=== PATIENT | male | born 1950 | race Caucasian/White ===

== ENCOUNTER 2021-04-22 07:15 | Inpatient (IN) | payer OTHER ==
[2021-04-16 10:18] VITALS: BMI 27.8
[2021-04-22] MEDS ORDERED: CEFAZOLIN 2 GM in DEXTROSE 5%-WATER - 50 ML IVPB ONE (07:46)
[2021-04-22] MEDS ORDERED: TRANEXAMIC ACID 1000 MG/10 ML VIAL IVPUSH ONE (07:46)
[2021-04-22] MEDS: CELECOXIB 200 MG CAPSULE PO ONE ×2 (08:05→15:02)
[2021-04-22] MEDS ORDERED: BUPIVACAINE HCL 50 ML ONE (08:32)
[2021-04-22] MEDS ORDERED: MIDAZOLAM HCL 2 MG/2 ML SINGLE DOSE VIAL ONE ×2 (08:37→10:06)
[2021-04-22] MEDS ORDERED: BUPIVACAINE LIPOSOME/PF (EXPAREL) 266 MG/20 ML VIAL ONE (08:37)
[2021-04-22] MEDS ORDERED: SODIUM CHLORIDE 0.9% P/F 10 ML VIAL IJ ONE ×2 (08:37→10:51)
[2021-04-22] MEDS ORDERED: BUPIVACAINE HCL/PF 0.5% (5MG/ML) 10 ML VIAL ONE (08:37)
[2021-04-22] MEDS ORDERED: ceFAZolin SODIUM 1 GM VIAL ONE ×2 (08:39→09:53)
[2021-04-22] MEDS ORDERED: VANCOMYCIN 1,000 MG VIAL (RESTRICTED TO ID ONLY) ONE (08:40)
[2021-04-22] MEDS ORDERED: MAGNESIUM HYDROX 2400MG/30ML ORAL SUSPENSION 30 ML CUP PO PRN (09:51)
[2021-04-22] MEDS ORDERED: LACTATED RINGERS SOLUTION 1,000 ML IV SCH (10:00)
[2021-04-22] MEDS ORDERED: PANTOPRAZOLE 20 MG TABLET PO SCH (10:00)
[2021-04-22] MEDS ORDERED: METOPROLOL TARTRATE 50 MG TABLET (FP) PO SCH (10:00)
[2021-04-22] MEDS ORDERED: PATIENT'S OWN MEDICATION (NON-FORMULARY) (Cetirizine Hcl [Cetirizine Hcl] 10 MG Tablet) PO SCH (10:00)
[2021-04-22] MEDS ORDERED: amLODIPine BESYLATE 10 MG TABLET (FP) PO SCH (10:00)
[2021-04-22] MEDS ORDERED: PATIENT'S OWN MEDICATION (NON-FORMULARY) (Oxybutynin Chloride [Oxybutynin Chloride Er] 15 PO SCH (10:00)
[2021-04-22] MEDS ORDERED: PROPOFOL 20 ML ONE (10:25)
[2021-04-22] MEDS ORDERED: THROMBIN (BOVINE) 5,000 UNIT VIAL TP ONE (10:48)
[2021-04-22] MEDS ORDERED: ACETAMINOPHEN 325 MG TABLET (FP) ONE (12:00)
[2021-04-22] MEDS ORDERED: oxyCODONE HCL 5 MG TABLET PO PRN (12:29)
[2021-04-22] MEDS: oxyCODONE HCL 5 MG TABLET PO PRN ×3 (13:33→18:57)
[2021-04-22] MEDS: ACETAMINOPHEN 325 MG TABLET (FP) PO SCH ×2 (15:03→18:14)
[2021-04-22] MEDS: SENNOSIDES/DOCUSATE COMBO (SENNA PLUS) TABLET (UD) PO SCH ×2 (15:03→21:34)
[2021-04-22] MEDS: MULTIVITAMINS (DAILY MVI) TABLET (FP) PO SCH (15:03)
[2021-04-22] MEDS: CEFAZOLIN 2 GM/D5W 2 GM/50 ML ML IVPB SCH (17:49)
[2021-04-22] MEDS: MAG HYDROX/AL HYDROX/SIMETH 30 ML UNIT-DOSE CUP PO PRN ×2 (20:06→23:17)
[2021-04-22] MEDS ORDERED: KETOROLAC TROMETHAMINE 30 MG/1 ML VIAL IVPUSH PRN (20:22)
[2021-04-22] MEDS ORDERED: ACETAMINOPHEN 1000 MG/100 ML VIAL (NON FORMULARY) IVPB PRN (20:23)
[2021-04-22] MEDS: traZODone HCL 100 MG TABLET (FP) PO SCH (21:33)
[2021-04-22] MEDS: ATORVASTATIN CA 20 MG TABLET (FP) PO SCH (21:34)
[2021-04-22] MEDS: oxyCODONE HCL 10 MG SUSTAINED ACTING TABLET PO SCH (21:35)
[2021-04-22] MEDS: MIRTAZAPINE 15 MG TABLET (FP) PO SCH (21:35)
[2021-04-22] MEDS ORDERED: traZODone HCL 150 MG TABLET PO SCH (22:00)
[2021-04-22] MEDS: ONDANSETRON 4 MG/2 ML VIAL IVPUSH PRN (23:48)
[2021-04-23] MEDS: CEFAZOLIN 2 GM/D5W 2 GM/50 ML ML IVPB SCH (01:24)
[2021-04-23] MEDS: ACETAMINOPHEN 325 MG TABLET (FP) PO SCH ×4 (01:24→23:55)
[2021-04-23] MEDS: MAG HYDROX/AL HYDROX/SIMETH 30 ML UNIT-DOSE CUP PO PRN ×2 (05:41→10:15)
[2021-04-23] MEDS: ONDANSETRON 4 MG/2 ML VIAL IVPUSH PRN ×2 (05:44→12:15)
[2021-04-23 07:48] LABS: HEMATOCRIT 35.9 % (35.4-49); HEMOGLOBIN 11.8 GM/dl (11.7-16.9); MCH 27.5 pg (25.7-33.7); MEAN CELL VOLUME 83.4 fl (80-96); MEAN PLT VOLUME 6.7 fl (7.5-11.1); PLATELET COUNT 320 10^3/uL (134-434); RDW 13.5 % (11.9-15.9); WHITE BLOOD COUNT 10.5 K/mm3 (4.0-10.8)
[2021-04-23] MEDS: ASPIRIN 325 MG TABLET PO SCH (12:09)
[2021-04-23] MEDS: LORATADINE 10 MG TABLET PO SCH (12:10)
[2021-04-23] MEDS: SOLIFENACIN SUCCINATE 5 MG TAB PO SCH (12:10)
[2021-04-23] MEDS: PANTOPRAZOLE 20 MG TABLET PO SCH (12:10)
[2021-04-23] MEDS: SENNOSIDES/DOCUSATE COMBO (SENNA PLUS) TABLET (UD) PO SCH ×2 (12:10→21:47)
[2021-04-23] MEDS: MULTIVITAMINS (DAILY MVI) TABLET (FP) PO SCH (12:11)
[2021-04-23] MEDS: oxyCODONE HCL 10 MG SUSTAINED ACTING TABLET PO SCH ×2 (12:11→21:46)
[2021-04-23] MEDS: amLODIPine BESYLATE 10 MG TABLET (FP) PO SCH (12:11)
[2021-04-23] MEDS: METOPROLOL TARTRATE 50 MG TABLET (FP) PO SCH (12:11)
[2021-04-23] MEDS: traZODone HCL 100 MG TABLET (FP) PO SCH (21:46)
[2021-04-23] MEDS: MIRTAZAPINE 15 MG TABLET (FP) PO SCH (21:46)
[2021-04-23] MEDS: ATORVASTATIN CA 20 MG TABLET (FP) PO SCH (21:47)
[2021-04-24] MEDS: oxyCODONE HCL 5 MG TABLET PO PRN ×3 (01:38→14:15)
[2021-04-24] MEDS: ACETAMINOPHEN 325 MG TABLET (FP) PO SCH ×2 (05:51→14:36)
[2021-04-24 08:01] LABS: HEMATOCRIT 32.3 % (35.4-49); HEMOGLOBIN 10.8 GM/dl (11.7-16.9); MCH 27.5 pg (25.7-33.7); MCHC 33.3 g/dl (32.0-35.9); MEAN CELL VOLUME 82.6 fl (80-96); MEAN PLT VOLUME 6.8 fl (7.5-11.1); PLATELET COUNT 283 10^3/uL (134-434); RBC 3.91 M/mm3 (4.00-5.60); WHITE BLOOD COUNT 11.3 K/mm3 (4.0-10.8)
[2021-04-24] MEDS: ASPIRIN 325 MG TABLET PO SCH (08:32)
[2021-04-24] MEDS: LORATADINE 10 MG TABLET PO SCH (09:24)
[2021-04-24] MEDS: PANTOPRAZOLE 20 MG TABLET PO SCH (09:24)
[2021-04-24] MEDS: SOLIFENACIN SUCCINATE 5 MG TAB PO SCH (09:24)
[2021-04-24] MEDS: MULTIVITAMINS (DAILY MVI) TABLET (FP) PO SCH (09:24)
[2021-04-24] MEDS: SENNOSIDES/DOCUSATE COMBO (SENNA PLUS) TABLET (UD) PO SCH (09:26)
[2021-04-24] MEDS: oxyCODONE HCL 10 MG SUSTAINED ACTING TABLET PO SCH (09:27)
[2021-04-24] MEDS: METOPROLOL TARTRATE 50 MG TABLET (FP) PO SCH (09:27)
[2021-04-24] MEDS: amLODIPine BESYLATE 10 MG TABLET (FP) PO SCH (09:27)
[2021-04-24 14:20] VITALS: BP 136/55; PULSE 89; TEMP 99
== END 2021-04-24 14:38 | disposition home or self-care (01) | DRG 302 ==
LOC: FM/S 07:15
PROVIDERS: ADMIT Orthopaedic Surgery; ATTEND Orthopaedic Surgery
PROC: 8E0Y0CZ Robotic Assisted Procedure of Lower Extremity, Open Approach (ICD-10-PCS; 2021-04-22)
PROC: 0SRC0JA Replacement of Right Knee Joint with Synthetic Substitute, Uncemented, Open Approach (ICD-10-PCS; principal; 2021-04-22 10:13)
DX: M17.11 Unilateral primary osteoarthritis, right knee (principal)
CPT/HCPCS: 36415; 73560-TC-RT-FY; 85027; 94760; 97116-GP; 97162-GP

== ENCOUNTER 2022-07-24 04:09 | Day surgery (SDC) | payer BC ==
[2022-07-23 08:46] VITALS: BMI 28.2
[2022-07-24 06:40] VITALS: RESP 20
[2022-07-24] MEDS ORDERED: BUPIVACAINE HCL/PF 0.75% 10 ML VIAL ONE (07:16)
[2022-07-24] MEDS ORDERED: LIDOCAINE HCL/PF 1% SDV 5ML VIAL ONE (07:16)
[2022-07-24] MEDS ORDERED: LIDOCAINE HCL/PF 2% SDV 5ML VIAL ONE (07:29)
[2022-07-24] MEDS ORDERED: LIDOCAINE HCL 1% PRESERVATIVE FREE - 30ML VIAL IJ ONE (08:39)
[2022-07-24] MEDS ORDERED: BUPIVACAINE HCL/PF 0.75% 10 ML VIAL NR ONE (08:41)
[2022-07-24] MEDS ORDERED: IOHEXOL 180 MG/1 ML ML IJ ONE (08:42)
[2022-07-24 09:11] VITALS: BP 129/71; PULSE 62; TEMP 98
== END 2022-07-24 09:17 | disposition home or self-care (01) ==
LOC: JASU-SURG 04:09
PROVIDERS: ATTEND Pain Medicine Pain Medicine
PROC: BR16YZZ Fluoroscopy of Lumbar Facet Joint(s) using Other Contrast (ICD-10-PCS; 2022-07-24)
PROC: 3E0T3BZ Introduction of Anesthetic Agent into Peripheral Nerves and Plexi, Percutaneous Approach (ICD-10-PCS; principal; 2022-07-24 08:00)
DX: M47.816 Spondylosis without myelopathy or radiculopathy, lumbar region (principal); I10 Essential (primary) hypertension
CPT/HCPCS: 76000-TC-FY

== ENCOUNTER 2022-09-18 04:02 | Day surgery (SDC) | payer BC ==
[2022-09-14 12:01] VITALS: BMI 28.2
[2022-09-18] MEDS ORDERED: LIDOCAINE HCL/PF 1% SDV 5ML VIAL ONE (07:21)
[2022-09-18] MEDS ORDERED: BUPIVACAINE HCL/PF 0.75% 10 ML VIAL ONE (07:21)
[2022-09-18 07:25] VITALS: RESP 20
[2022-09-18] MEDS ORDERED: BUPIVACAINE HCL/PF 0.75% 10 ML VIAL PNB ONE (08:35)
[2022-09-18] MEDS ORDERED: IOHEXOL 180 MG/1 ML ML IJ ONE (08:35)
[2022-09-18] MEDS ORDERED: LIDOCAINE HCL 1% PRESERVATIVE FREE - 30ML VIAL IJ ONE (08:35)
[2022-09-18 09:20] VITALS: BP 124/59; PULSE 60; TEMP 97.8
== END 2022-09-18 09:21 | disposition home or self-care (01) ==
LOC: JASU-SURG 04:02
PROVIDERS: ATTEND Pain Medicine Pain Medicine
PROC: 3E0T33Z Introduction of Anti-inflammatory into Peripheral Nerves and Plexi, Percutaneous Approach (ICD-10-PCS; 2022-09-18)
PROC: 3E0T3BZ Introduction of Anesthetic Agent into Peripheral Nerves and Plexi, Percutaneous Approach (ICD-10-PCS; principal; 2022-09-18 08:45)
DX: M47.816 Spondylosis without myelopathy or radiculopathy, lumbar region (principal)
CPT/HCPCS: 76000-TC-FY

== ENCOUNTER 2022-10-16 04:10 | Day surgery (SDC) | payer BC ==
[2022-10-13 15:21] VITALS: BMI 28.2
[2022-10-16] MEDS ORDERED: LIDOCAINE HCL/PF 2% SDV 5ML VIAL ONE (07:23)
[2022-10-16] MEDS ORDERED: LIDOCAINE HCL/PF 1% SDV 5ML VIAL ONE (07:23)
[2022-10-16] MEDS ORDERED: DEXAMETHASONE SOD PHOSPHATE 4 MG/1 ML VIAL ONE (07:23)
[2022-10-16] MEDS ORDERED: DEXAMETHASONE SOD PHOSPHATE 10 MG/1 ML VIAL ONE (07:23)
[2022-10-16 13:08] VITALS: RESP 18
[2022-10-16] MEDS ORDERED: LIDOCAINE HCL 1% PRESERVATIVE FREE - 30ML VIAL IJ ONE ×2 (14:02→14:04)
[2022-10-16] MEDS ORDERED: IOHEXOL 180 MG/1 ML ML IJ ONE ×2 (14:03→14:04)
[2022-10-16] MEDS ORDERED: DEXAMETHASONE SOD PHOSPHATE 10 MG/1 ML VIAL IVPUSH ONE ×2 (14:03→14:04)
[2022-10-16 14:49] VITALS: TEMP 97.9
[2022-10-16 15:10] VITALS: BP 141/76; PULSE 67
== END 2022-10-16 14:50 | disposition home or self-care (01) ==
LOC: JASU-SURG 04:10
PROVIDERS: ATTEND Pain Medicine Pain Medicine
PROC: 3E0R3BZ Introduction of Anesthetic Agent into Spinal Canal, Percutaneous Approach (ICD-10-PCS; 2022-10-16)
PROC: 3E0R33Z Introduction of Anti-inflammatory into Spinal Canal, Percutaneous Approach (ICD-10-PCS; principal; 2022-10-16 14:15)
DX: M54.16 Radiculopathy, lumbar region (principal); M48.061 Spinal stenosis, lumbar region without neurogenic claudication
CPT/HCPCS: 76000-TC-FY; J1100

== ENCOUNTER 2024-06-22 04:30 | Day surgery (SDC) | payer BC ==
[2024-06-15 11:43] VITALS: BMI 25.0
[2024-06-22 09:13] VITALS: TEMP 98.5
[2024-06-22 09:27] VITALS: RESP 18
[2024-06-22 09:42] VITALS: BP 118/64; PULSE 74
== END 2024-06-22 09:46 | disposition home or self-care (01) ==
LOC: JASU-ENDO 04:30
PROVIDERS: ATTEND Internal Medicine Gastroenterology
PROC: 0DB58ZX Excision of Esophagus, Via Natural or Artificial Opening Endoscopic, Diagnostic (ICD-10-PCS; 2024-06-22)
PROC: 0DBP8ZX Excision of Rectum, Via Natural or Artificial Opening Endoscopic, Diagnostic (ICD-10-PCS; principal; 2024-06-22 08:30)
DX: Z12.11 Encounter for screening for malignant neoplasm of colon (principal); D12.8 Benign neoplasm of rectum; K57.30 Diverticulosis of large intestine without perforation or abscess without bleeding; K22.70 Barrett's esophagus without dysplasia; K44.9 Diaphragmatic hernia without obstruction or gangrene; K21.00 Gastro-esophageal reflux disease with esophagitis, without bleeding; Z86.010 Personal history of colon polyps
CPT/HCPCS: 88305-TC

== ENCOUNTER 2024-08-10 05:12 | Day surgery (SDC) | payer BC ==
[2024-08-04 15:23] VITALS: BMI 24.9
[2024-08-10] MEDS ORDERED: ACETAMINOPHEN 500 MG TABLET (FP) PO PRN (09:23)
[2024-08-10] MEDS: IOHEXOL 180 MG/1 ML ML IJ ONE ×2 (11:24)
[2024-08-10] MEDS: LIDOCAINE HCL 1% PRESERVATIVE FREE - 30ML VIAL IJ ONE ×2 (11:24)
[2024-08-10] MEDS: DEXAMETHASONE SOD PHOSPHATE 10 MG/1 ML VIAL IVPUSH ONE ×2 (11:24)
[2024-08-10 11:42] VITALS: PULSE 54
[2024-08-10 11:48] VITALS: BP 114/66; RESP 18; TEMP 97.4
== END 2024-08-10 11:49 | disposition home or self-care (01) ==
LOC: JASU-SURG 05:12
PROVIDERS: ATTEND Pain Medicine Pain Medicine
PROC: 3E0R3BZ Introduction of Anesthetic Agent into Spinal Canal, Percutaneous Approach (ICD-10-PCS; 2024-08-10)
PROC: 3E0R33Z Introduction of Anti-inflammatory into Spinal Canal, Percutaneous Approach (ICD-10-PCS; principal; 2024-08-10 11:15)
DX: M48.061 Spinal stenosis, lumbar region without neurogenic claudication (principal); M54.16 Radiculopathy, lumbar region
CPT/HCPCS: 76000-TC-FY; J1100

== ENCOUNTER 2024-09-08 04:32 | Day surgery (SDC) | payer BC ==
[2024-09-07 17:26] VITALS: BMI 23.8
[2024-09-08] MEDS ORDERED: LIDOCAINE HCL/PF 1% SDV 5ML VIAL ONE (07:40)
[2024-09-08 09:59] VITALS: PULSE 53
[2024-09-08 10:22] VITALS: BP 113/56; RESP 18; TEMP 97.8
[2024-09-08] MEDS ORDERED: ACETAMINOPHEN 500 MG TABLET (FP) PO PRN (12:41)
== END 2024-09-08 10:30 | disposition home or self-care (01) ==
LOC: JASU-SURG 04:32
PROVIDERS: ATTEND Pain Medicine Pain Medicine
PROC: 3E0R3BZ Introduction of Anesthetic Agent into Spinal Canal, Percutaneous Approach (ICD-10-PCS; 2024-09-08)
PROC: 3E0R33Z Introduction of Anti-inflammatory into Spinal Canal, Percutaneous Approach (ICD-10-PCS; principal; 2024-09-08 09:51)
DX: M48.061 Spinal stenosis, lumbar region without neurogenic claudication (principal); M54.16 Radiculopathy, lumbar region
CPT/HCPCS: 76000-TC-FY

== ENCOUNTER 2025-03-09 05:45 | Day surgery (SDC) | payer BC ==
[2025-03-07 17:25] VITALS: BMI 23.3
[2025-03-09] MEDS ORDERED: ACETAMINOPHEN 500 MG TABLET (FP) PO PRN (08:34)
[2025-03-09] MEDS ORDERED: MIDAZOLAM HCL 2 MG/2 ML SINGLE DOSE VIAL ONE (10:28)
[2025-03-09] MEDS ORDERED: PROPOFOL 60 ML ONE (10:28)
[2025-03-09] MEDS: ceFAZolin SODIUM 1 GM VIAL IVPB ONE (10:40)
[2025-03-09] MEDS ORDERED: PROPOFOL 20 ML ONE (10:45)
[2025-03-09] MEDS: LIDOCAINE HCL 1% PRESERVATIVE FREE - 30ML VIAL IJ ONE (10:50)
[2025-03-09] MEDS: LIDOCAINE HCL/PF 2% SDV 5ML VIAL INF ONE (10:53)
[2025-03-09] MEDS ORDERED: ACETAMINOPHEN INJECTION 100 ML ONE (11:59)
[2025-03-09] MEDS: ACETAMINOPHEN 1000 MG/100 ML BAG IVPB ONE (12:01)
[2025-03-09 13:29] VITALS: RESP 16
[2025-03-09 13:42] VITALS: BP 129/62; PULSE 56; TEMP 97.9
== END 2025-03-09 13:43 | disposition home or self-care (01) ==
LOC: JASU-SURG 05:45
PROVIDERS: ATTEND Pain Medicine Pain Medicine
PROC: 015B3ZZ Destruction of Lumbar Nerve, Percutaneous Approach (ICD-10-PCS; principal; 2025-03-09 10:00)
DX: M54.51 Vertebrogenic low back pain (principal)
CPT/HCPCS: 64628; C1889; 76000-TC-FY; 94760